=== PATIENT | female | born 1950 | race Caucasian/White ===

== ENCOUNTER 2021-04-18 18:20 | Emergency (ER) | payer MEDICARE ==
[2021-04-18] MEDS ORDERED: LORazepam 0.5 MG Tab PO ONE (18:40)
[2021-04-18] MEDS ORDERED: LORazepam 2 MG/ML SDV IVPUSH ONE ×2 (19:47→20:34)
[2021-04-18] MEDS ORDERED: Sodium Chloride 0.9% 10 ML Syringe FLUSH PRN (19:47)
[2021-04-18] MEDS ORDERED: Lactated Ringers 1,000 ML IV ONE (20:15)
== END 2021-04-18 22:05 | disposition home or self-care (01) ==
LOC: JP.ED 18:20
DX: F41.0 Panic disorder [episodic paroxysmal anxiety] (principal); E03.9 Hypothyroidism, unspecified; Z88.1 Allergy status to other antibiotic agents; Z88.0 Allergy status to penicillin; Z79.899 Other long term (current) drug therapy
CPT/HCPCS: 36415; 80048; 85025; 96374; 99283; A9270; J2060; J7120

== ENCOUNTER 2023-08-31 11:47 | Emergency (ER) | payer MEDICARE ==
[2023-08-31 13:24] LABS: BASOPHILS ABSOLUTE AUTO 0.05 K/uL (0.00-0.10); BASOPHILS PERCENT AUTO 0.8 % (0.1-1.3); EOSINOPHILS ABSOLUTE AUTO 0.13 K/uL (0.00-0.40); HEMOGLOBIN 13.7 g/dL (11.2-15.5); IMMATURE GRAN PERCENT AUTO 0.2 % (0.0-0.7); LYMPHOCYTES ABSOLUTE AUTO 2.18 K/uL (0.8-3.3); LYMPHOCYTES PERCENT AUTO 34.2 % (11.4-47.7); MEAN CORPUSCULAR HEMOGLOBIN 31.6 pg (31.6-35.5); MEAN CORPUSCULAR HGB CONC 34.3 g/dL (31.6-35.5); MEAN CORPUSCULAR VOLUME 92.4 fL (81.4-99.0); MONOCYTES ABSOLUTE AUTO 0.58 K/uL (0.20-0.90); MONOCYTES PERCENT AUTO 9.1 % (3.3-12.6); NEUTROPHILS ABSOLUTE AUTO 3.43 K/uL (1.0-7.6); NEUTROPHILS PERCENT AUTO 53.7 % (40.0-78.1); PLATELET COUNT,PLT 259 K/uL (130-375); RED BLOOD CELL COUNT 4.33 M/uL (3.77-5.24); WHITE BLOOD CELL COUNT,WBC 6.4 K/uL (3.2-11.0)
[2023-08-31 13:26] LABS: APPEARANCE,URINE CLEAR (CLEAR); BILIRUBIN,URINE NEGATIVE (NEGATIVE); COLOR,URINE YELLOW (YELLOW); GLUCOSE,URINE NEGATIVE (NEGATIVE); KETONES,URINE NEGATIVE (NEGATIVE); LEUKOCYTE ESTERASE,URINE TRACE (NEGATIVE); NITRITE,URINE NEGATIVE (NEGATIVE); OCCULT BLOOD,URINE MODERATE (NEGATIVE); PH,URINE 5.5 (5.0-8.0); PROTEIN,URINE NEGATIVE (NEGATIVE); UROBILINOGEN,URINE 0.2 EU/dL (0.2-1.0)
[2023-08-31 13:30] LABS: IMMATURE GRAN ABSOLUTE AUTO 0.01 K/uL (0.00-0.23)
[2023-08-31 13:37] LABS: AMORPHOUS SEDIMENT,URINE NOT SEEN; BACTERIA,URINE FEW; EPITHELIAL CELLS,URINE RARE; MUCUS,URINE NOT SEEN; WBC,URINE 0-5 (0-5)
[2023-08-31 13:46] LABS: INR 1.1; PROTHROMBIN TIME 10.7 sec (9.2-10.6); PTT,PARTIAL THROMBOPLSTIN TIME 25.6 sec (21.8-27.3)
[2023-08-31 13:55] LABS: ALANINE AMINOTRANSFERASE,ALT 40 U/L (12-78); ALBUMIN 3.5 g/dL (3.4-5.0); ALKALINE PHOSPHATASE 70 U/L (46-116); ANION GAP 8.7 mmol/L (5.0-14.0); ASPARTATE AMNIOTRANSFERASE,AST 29 U/L (15-37); BILIRUBIN TOTAL 0.4 mg/dL (0.2-1.0); BLOOD UREA NITROGEN,BUN 14 mg/dL (7-18); CALCIUM 9.3 mg/dL (8.5-10.1); CARBON DIOXIDE,CO2 26 mmol/L (21-32); CHLORIDE,CL 105 mmol/L (100-108); EST CRCL DRUG DOSING (CG) 45.76 mL/min; ESTIMATED GFR 60 mL/min (>60); GLUCOSE RANDOM 83 mg/dL (74-106); MAGNESIUM 2.1 mg/dL (1.8-2.4); PHOSPHORUS 4.3 mg/dL (2.5-4.9); POTASSIUM,K 4.4 mmol/L (3.6-5.2); PRO B-TYPE NATRIUR PEPT,BNPPRO 2038 pg/mL (5-125); PROTEIN TOTAL,TP 7.2 g/dL (6.4-8.2); SODIUM,NA 140 mmol/L (140-148); TROPONIN I HIGH SENSITIVITY 9.9 pg/mL (<=60.3)
[2023-08-31] MEDS: Sodium Chloride 0.9% 10 ML Syringe FLUSH PRN (14:28)
[2023-08-31] MEDS: Iopamidol 612 MG/ML 100 ML Bottle IV PRN (14:28)
[2023-08-31] MEDS: Sodium Chloride 0.9% 80 ML IV ONE (14:28)
[2023-08-31] MEDS: Apixaban 5 MG Tab PO ONE (16:31)
[2023-08-31] MEDS: Metoprolol Succinate 25 MG Tab.ER PO ONE (16:31)
== END 2023-08-31 18:28 | disposition home or self-care (01) ==
LOC: JP.ED 11:47
DX: I48.91 Unspecified atrial fibrillation (principal); R79.89 Other specified abnormal findings of blood chemistry; E03.9 Hypothyroidism, unspecified; Z88.1 Allergy status to other antibiotic agents; Z88.0 Allergy status to penicillin; Z79.890 Hormone replacement therapy; Z79.899 Other long term (current) drug therapy
CPT/HCPCS: 36415; 71046; 71275; 80053; 81001; 83735; 83880; 84100; 84443; 84484; 85025; 85379; 85610; 85730; 99285; A9270; J3490; Q9967; 93010; 99284

== ENCOUNTER 2024-08-12 09:03 | Emergency (ER) | payer MEDICARE, BC ==
[2024-08-12 10:18] LABS: BASOPHILS ABSOLUTE AUTO 0.04 K/uL (0.00-0.10); BASOPHILS PERCENT AUTO 0.4 % (0.1-1.3); EOSINOPHILS ABSOLUTE AUTO 0.07 K/uL (0.00-0.40); EOSINOPHILS PERCENT AUTO 0.6 % (0.0-5.4); HEMATOCRIT 45.8 % (34.3-46.0); HEMOGLOBIN 15.3 g/dL (11.2-15.5); IMMATURE GRAN PERCENT AUTO 0.2 % (0.0-0.7); LYMPHOCYTES ABSOLUTE AUTO 1.54 K/uL (0.8-3.3); LYMPHOCYTES PERCENT AUTO 14.1 % (11.4-47.7); MEAN CORPUSCULAR HEMOGLOBIN 30.8 pg (31.6-35.5); MEAN CORPUSCULAR HGB CONC 33.4 g/dL (31.6-35.5); MEAN CORPUSCULAR VOLUME 92.3 fL (81.4-99.0); MONOCYTES ABSOLUTE AUTO 0.77 K/uL (0.20-0.90); MONOCYTES PERCENT AUTO 7.1 % (3.3-12.6); NEUTROPHILS ABSOLUTE AUTO 8.46 K/uL (1.0-7.6); NEUTROPHILS PERCENT AUTO 77.6 % (40.0-78.1); PLATELET COUNT,PLT 296 K/uL (130-375); RED BLOOD CELL COUNT 4.96 M/uL (3.77-5.24); WHITE BLOOD CELL COUNT,WBC 10.9 K/uL (3.2-11.0)
[2024-08-12] MEDS: Sodium Chloride 0.9% 10 ML Syringe FLUSH PRN (10:18)
[2024-08-12] MEDS: Ondansetron 4 MG/2 ML SDV IVPUSH ONE (10:18)
[2024-08-12] MEDS: Lactated Ringers 1,000 ML IV SCH (10:18)
[2024-08-12 10:24] LABS: IMMATURE GRAN ABSOLUTE AUTO 0.02 K/uL (0.00-0.23)
[2024-08-12 10:40] LABS: A/G RATIO 0.9 (1.2-2.2); ALANINE AMINOTRANSFERASE,ALT 32 U/L (12-78); ALBUMIN 3.7 g/dL (3.4-5.0); ALKALINE PHOSPHATASE 74 U/L (46-116); ANION GAP 15.8 mmol/L (5.0-14.0); ASPARTATE AMNIOTRANSFERASE,AST 18 U/L (15-37); BILIRUBIN TOTAL 0.9 mg/dL (0.2-1.0); BLOOD UREA NITROGEN,BUN 19 mg/dL (7-18); CALCIUM 9.6 mg/dL (8.5-10.1); CARBON DIOXIDE,CO2 25 mmol/L (21-32); CHLORIDE,CL 102 mmol/L (100-108); EST CRCL DRUG DOSING (CG) 45.08 mL/min; ESTIMATED GFR 59 mL/min (>60); GLUCOSE RANDOM 108 mg/dL (74-106); POTASSIUM,K 3.8 mmol/L (3.6-5.2); PROTEIN TOTAL,TP 7.8 g/dL (6.4-8.2); SODIUM,NA 139 mmol/L (140-148)
[2024-08-12 11:41] LABS: APPEARANCE,URINE CLEAR (CLEAR); BILIRUBIN,URINE NEGATIVE (NEGATIVE); COLOR,URINE YELLOW (YELLOW); GLUCOSE,URINE NEGATIVE (NEGATIVE); KETONES,URINE NEGATIVE (NEGATIVE); LEUKOCYTE ESTERASE,URINE MODERATE (NEGATIVE); NITRITE,URINE NEGATIVE (NEGATIVE); OCCULT BLOOD,URINE MODERATE (NEGATIVE); PH,URINE 6.5 (5.0-8.0); PROTEIN,URINE NEGATIVE (NEGATIVE); UROBILINOGEN,URINE 0.2 EU/dL (0.2-1.0)
[2024-08-12 11:50] LABS: AMORPHOUS SEDIMENT,URINE NOT SEEN; BACTERIA,URINE FEW; EPITHELIAL CELLS,URINE FEW; MUCUS,URINE FEW; RBC,URINE 20-30 (0-5)
== END 2024-08-12 12:22 | disposition home or self-care (01) ==
LOC: JP.ED 09:03
DX: K52.9 Noninfective gastroenteritis and colitis, unspecified (principal); E03.9 Hypothyroidism, unspecified; Z88.0 Allergy status to penicillin; Z88.1 Allergy status to other antibiotic agents; Z88.8 Allergy status to other drugs, medicaments and biological substances; Z79.890 Hormone replacement therapy; Z79.899 Other long term (current) drug therapy; Z90.49 Acquired absence of other specified parts of digestive tract
CPT/HCPCS: 36415; 80053; 81001; 83605; 83690; 85025; 87086; 96361; 96374; 99284; J2405; J7120